=== PATIENT | female | born 1980 | race Two or more races ===

== ENCOUNTER 2016-10-06 17:51 | Emergency (ER) | payer OTHER ==
[2016-10-06 17:55] VITALS: BP 114/76; PULSE 72; TEMP 97.9; BMI 25.7
[2016-10-06] MEDS ORDERED: TETRACAINE 0.5% HCL 0.6ML DROPPER.BOTTLE OS ONE (18:23)
[2016-10-06] MEDS ORDERED: TETRACAINE 0.5% OPHTH SOLN 2 ML BOTTLE ONE (18:27)
--- NOTE | 2016-10-06 18:27 | PDOC ---
History of Present Illness - General Chief Complaint: Eye Problem Stated Complaint: COLD SYMPTOMS Time Seen by Provider: 10/06/16 18:03 History Source: Patient Exam Limitations: No Limitations - History of Present Illness Initial Comments: 10/06/16 18:22 35 yr female with itchy eyes started yesterday left eye more than right. Pt also with sneezing, nasal congestion . no fever. Past History - Past Medical History Allergies/Adverse Reactions: Allergies Allergy/AdvReac Type Severity Reaction Status Date / Time ondansetron HCl [From Zofran] Allergy Unknown Verified 10/06/16 17:53 ranitidine HCl [From Zantac] Allergy Unknown Verified 10/06/16 17:53 fluconazole [From Diflucan] Allergy Verified 10/06/16 17:53 Home Medications: Ambulatory Orders Ketotifen Fumarate [Itchy Eye] 1 drop OU BID #1 bottle 10/06/16 Moxifloxacin HCl [Vigamox 0.5% Eye Drops -] 1 drop OS QID #1 bottle 10/06/16 Asthma: No Cancer: No Cardiac Disorders: No Diabetes: No GI Disorders: Yes (HEARTBURN) HTN: No Seizures: No Thyroid Disease: No Other medical history: DENIES. - Surgical History Abdominal Surgery: Yes (LIPOSUCTION.) - Psycho/Social/Smoking Cessation Hx Anxiety: No Suicidal Ideation: No Smoking Status: No Smoking History: Current every day smoker Have you smoked in the past 12 months: Yes Number of Cigarettes Smoked Daily: 10 Information on smoking cessation initiated: No Hx Alcohol Use: No Drug/Substance Use Hx: No Substance Use Type: None Hx Substance Use Treatment: No *Physical Exam - Vital Signs Last Vital Signs Temp Pulse Resp BP Pulse Ox 97.9 F 72 18 114/76 99 10/06/16 17:53 10/06/16 17:53 10/06/16 17:53 10/06/16 17:53 10/06/16 17:53 - Physical Exam General Appearance: Yes: Nourished, Appropriately Dressed HEENT: positive: EOMI, SHAVON, Normal ENT Inspection, TMs Normal, Pharynx Normal, Other (bilateral conjunctiva eryhtmea, tearing left more than right, left with yellowish drainage ) Neck: negative: Tender Respiratory/Chest: positive: Lungs Clear, Normal Breath Sounds Cardiovascular: positive: Regular Rhythm, Regular Rate Gastrointestinal/Abdominal: positive: Normal Bowel Sounds, Soft Musculoskeletal: positive: Normal Inspection Extremity: positive: Normal Capillary Refill, Normal Inspection, Normal Range of Motion Integumentary: positive: Normal Color, Dry, Warm Neurologic: positive: Fully Oriented, Alert, Normal Mood/Affect, Normal Response , Motor Strength 5/5 Medical Decision Making - Medical Decision Making 10/06/16 20:00 cc: itchy eyes, tearing eyes nasal congestion pt concerned about 7 week baby at home catching pink eye afebrile non toxic not most likely allergic, will treat with vigamox drops for left eye conjunctivitis and antihistamine drops for both eyes mom has claritin at home for systemic allergies strict handwashing and cleaning with bleach common surfaces discussed pt agrees with plan of care *DC/Admit/Observation/Transfer Diagnosis at time of Disposition: Allergic conjunctivitis and rhinitis Qualifiers: Laterality: bilateral Qualified Code(s): H10.13 - Acute atopic conjunctivitis, bilateral - Prescriptions Prescriptions: Ketotifen Fumarate [Itchy Eye] 1 drop OU BID #1 bottle Moxifloxacin HCl [Vigamox 0.5% Eye Drops -] 1 drop OS QID #1 bottle - Referrals Referrals: Cole Fisher MD [Primary Care Provider] - Blayne Aguilar MD [Staff Physician] - - Patient Instructions Additional Instructions: get over the counter non drowsy Claritin or Zyrtec and take daily as directed wash hands frequently clean door handles, faucet handles common areas with bleach wipes. use the eye drops as directed follow with ENT and allergy for follow up next week if not improving
== END 2016-10-06 18:35 | disposition home or self-care (01) ==
LOC: JERFT 17:51 → SUPCPDRO 17:51 → JERFT 18:35
DX: H10.13 Acute atopic conjunctivitis, bilateral (principal); J30.1 Allergic rhinitis due to pollen
CPT/HCPCS: 99281-25

== ENCOUNTER 2017-03-24 19:30 | Emergency (ER) | payer OTHER ==
[2017-03-24 19:39] VITALS: BP 127/82; PULSE 78; TEMP 98; BMI 28.1
--- NOTE | 2017-03-24 20:36 | PDOC ---
History of Present Illness - General Chief Complaint: Rash Stated Complaint: ALLERGIC REACTION Time Seen by Provider: 03/24/17 20:32 History Source: Patient Exam Limitations: No Limitations - History of Present Illness Initial Comments: Patient is a 36 year old female with history of allergies presenting with diffuse pruritic rash for one day. Patient states the rash 03/24/17 20:36 03/24/17 20:51 Past History - Past Medical History Allergies/Adverse Reactions: Allergies Allergy/AdvReac Type Severity Reaction Status Date / Time ondansetron HCl [From Zofran] Allergy Unknown Verified 03/24/17 19:35 fluconazole [From Diflucan] Allergy Verified 03/24/17 19:35 Home Medications: Ambulatory Orders Diphenhydramine HCl [Benadryl -] 25 mg PO Q6H PRN #28 capsule 03/24/17 Ibuprofen [Motrin -] 600 mg PO QID PRN #28 tablet 03/24/17 Asthma: No Cancer: No Cardiac Disorders: No Diabetes: No GI Disorders: Yes (HEARTBURN) HTN: No Seizures: No Thyroid Disease: No - Surgical History Abdominal Surgery: Yes (LIPOSUCTION.) - Immunization History Immunization Up to Date: Yes - Suicide/Smoking/Psychosocial Hx Smoking Status: No Smoking History: Current every day smoker Have you smoked in the past 12 months: Yes Number of Cigarettes Smoked Daily: 20 Information on smoking cessation initiated: No Hx Alcohol Use: No Drug/Substance Use Hx: No Substance Use Type: None Hx Substance Use Treatment: No Review of Systems - Review of Systems Able to Perform ROS?: Yes Comments:: GEN: Denies fever, chills, recent illness HEENTM: Denies sore throat, Changes in vision, Changes in hearing Respiratory: Denies Cough, Shortness of Breath Cardiac: Denies Chest Pain, Syncope ABD/GI: Denies Abdominal Pain, Nausea, Vomiting, Diarrhea, Constipation : Denies Dysuria, Burning on urination Musculoskeletal: Endorses joint pain; Denies muscle pain Integumentary: Endorses a diffuse rash to chest, back, abdomen, arms, legs; Denies diaphoresis, bruises Neurological: Denies SAVAGE, dizziness, weakness All Other Systems Reviewed and Negative Is the patient limited Samoan proficient: No *Physical Exam - Vital Signs Last Vital Signs Temp Pulse Resp BP Pulse Ox 98.0 F 78 18 127/82 100 03/24/17 19:33 03/24/17 19:33 03/24/17 19:33 03/24/17 19:33 03/24/17 19:33 Medical Decision Making - Medical Decision Making 36 year old female with history of RA and allergies presenting with a diffuse rash and joint pain ddx Benedryl and Motirn Derm referral monitor and reassess 03/24/17 20:55 *DC/Admit/Observation/Transfer Diagnosis at time of Disposition: Allergic reaction Qualifiers: Encounter type: initial encounter Qualified Code(s): T78.40XA - Allergy, unspecified, initial encounter - Discharge Dispostion Disposition: HOME Condition at time of disposition: Improved Admit: No - Prescriptions Prescriptions: Diphenhydramine HCl [Benadryl -] 25 mg PO Q6H PRN #28 capsule PRN Reason: For Itching Ibuprofen [Motrin -] 600 mg PO QID PRN #28 tablet PRN Reason: Pain - Referrals Referrals: Cole Fisher MD [Primary Care Provider] - - Patient Instructions Printed Discharge Instructions: How to Reduce Environmental Allergens Additional Instructions: Follow up with Dr. Fisher in the next two weeks for your joint pain. Make an appointment with one of the dermatologists to evaluate the cause of your allergic rashes Take all medication as directed. Avoid driving when taking diphehydramine because it may cause fatigue. Take 1 Motrin tablet every 6 hours as needed for pain Take 1 Benadryl tablet every 4 hours as needed for itchiness. return to the emergency room if your start to develop problems breathing, your rash continues to get worse or you develop any new or concerning symptoms. Print Language: BAHAMIAN
[2017-03-24] MEDS ORDERED: diphenhydrAMINE HCL 50 MG CAPSULE PO ONE (20:49)
[2017-03-24] MEDS ORDERED: diphenhydrAMINE HCL 25 MG CAPSULE (FP) PO ONE (20:53)
[2017-03-24] MEDS ORDERED: IBUPROFEN 400 MG TABLET (FP) PO ONE ×2 (20:54→20:56)
--- NOTE | 2017-03-24 21:18 | PDOC ---
Attending Attestation - Resident Resident Name: Virgil Webber - ED Attending Attestation I have performed the following: I have examined & evaluated the patient, The case was reviewed & discussed with the resident, I agree w/resident's findings & plan, Exceptions are as noted - HPI HPI: 03/24/17 21:15 36 yo female with history of allergies developed hives tonight to an unknown substance. She denies any shortness of breath,difficulty breathing. Also she states that for the psat 2 years she has had intermittent joint pain. 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
== END 2017-03-24 21:38 | disposition home or self-care (01) ==
LOC: JER 19:30 → JERFT 19:30 → JER 21:38
DX: T78.40XA Allergy, unspecified, initial encounter (principal)
CPT/HCPCS: 99282-25

== ENCOUNTER 2019-12-16 21:21 | Emergency (ER) | payer OTHER ==
[2019-12-16 21:34] VITALS: BP 123/87; PULSE 72; TEMP 98; BMI 27.1
--- NOTE | 2019-12-16 21:35 | PDOC ---
Rapid Medical Evaluation Chief Complaint: Head/Neck problem Time Seen by Provider: 12/16/19 21:34 Medical Evaluation: Allergies Allergy/AdvReac Type Severity Reaction Status Date / Time ondansetron HCl [From Zofran] Allergy Unknown Verified 12/16/19 21:28 fluconazole [From Diflucan] Allergy Verified 12/16/19 21:28 Vital Signs Temp Pulse Resp BP Pulse Ox 98 F 72 18 123/87 98 12/16/19 21:24 12/16/19 21:24 12/16/19 21:24 12/16/19 21:24 12/16/19 21:24 12/16/19 21:34 I have performed a brief in-person evaluation of this patient. CC: Right sided weakness x2 weeks PE: [place] negative. Orders: labs, urine, ekg Patient to proceed to ED for Further evaluation. Discharge Disposition - Diagnosis Weakness - Discharge Dispostion Last Admission D/C Date: 06/20/12 - Referrals Referrals: Cole Fisher MD [Primary Care Provider] - - Patient Instructions - Post Discharge Activity
[2019-12-16] MEDS ORDERED: ACETAMINOPHEN 500 MG TABLET (FP) PO ONE (21:50)
[2019-12-16] MEDS ORDERED: METOCLOPRAMIDE HCL INJECTION 10 MG/2 ML VIAL IVPUSH ONE (21:50)
[2019-12-16] MEDS ORDERED: LACTATED RINGERS SOLUTION 1,000 ML/1,000 ML INFUS.BAG IV STA (21:50)
[2019-12-16] MEDS ORDERED: ACETAMINOPHEN 325 MG TABLET (FP) ONE (22:17)
[2019-12-16] MEDS ORDERED: METOCLOPRAMIDE HCL INJECTION 10 MG/2 ML VIAL ONE (22:17)
[2019-12-16 22:23] LABS: BASO % 0.6 % (0-2.0); EOS % 2.5 % (0-4.5); HEMATOCRIT 38.8 % (32.4-45.2); LYMPH % 35.2 % (8-40); MCH 27.6 pg (25.7-33.7); MCHC 33.4 g/dl (32.0-36.0); MEAN CELL VOLUME 82.6 fl (80-96); MEAN PLT VOLUME 7.5 fl (7.5-11.1); MONO % 6.4 % (3.8-10.2); NEUT % 55.3 % (42.8-82.8); PLATELET COUNT 262 K/MM3 (134-434); RDW 13.3 % (11.6-15.6)
[2019-12-16 22:34] LABS: INR 0.99 (0.83-1.09); PROTHROMBIN TIME (PATIENT) 11.7 SEC (9.7-13.0)
[2019-12-16 22:36] LABS: ACTIVATED PTT 29.3 SECONDS (25.2-36.5)
[2019-12-16 22:45] LABS: PH,URINE 6.5 (5.0-8.0); URINE APPEARANCE CLEAR; URINE BILIRUBIN NEGATIVE (NEGATIVE); URINE COLOR YELLOW; URINE GLUCOSE (UA) NEGATIVE (NEGATIVE); URINE KETONE NEGATIVE (NEGATIVE); URINE LEUK ESTERASE NEGATIVE (NEGATIVE); URINE NITRITE NEGATIVE (NEGATIVE); URINE PROTEIN NEGATIVE (NEGATIVE)
[2019-12-16 23:02] LABS: ALBUMIN 3.6 g/dl (3.4-5.0); ALK PHOS 63 U/L (45-117); ANION GAP 9 MMOL/L (8-16); BILIRUBIN,TOTAL 0.3 mg/dL (0.2-1); BLOOD UREA NITROGEN 13.5 mg/dL (7-18); CALCIUM 8.9 mg/dL (8.5-10.1); CHLORIDE 107 mmol/L (98-107); CO2 25 mmol/L (21-32); CREATININE 0.8 mg/dL (0.55-1.3); GLUCOSE,RANDOM 81 mg/dL (74-106); POTASSIUM 3.7 mmol/L (3.5-5.1); SGOT/AST 14 U/L (15-37); SGPT/ALT 20 U/L (13-61); SODIUM 141 mmol/L (136-145); TOT PROT 7.6 g/dl (6.4-8.2)
--- NOTE | 2019-12-17 02:18 | PDOC ---
*Physical Exam - Vital Signs Last Vital Signs Temp Pulse Resp BP Pulse Ox 98 F 72 18 123/87 98 12/16/19 21:24 12/16/19 21:24 12/16/19 21:24 12/16/19 21:24 12/16/19 21:24 ED Treatment Course - LABORATORY CBC & Chemistry Diagram: 12/16/19 22:05 12/16/19 22:05 - ADDITIONAL ORDERS Additional order review: Laboratory Results 12/16/19 12/16/19 12/16/19 22:35 22:35 22:30 PT with INR INR PTT (Actin FS) Sodium Potassium Chloride Carbon Dioxide Anion Gap BUN Creatinine Est GFR (CKD-EPI)AfAm Est GFR (CKD-EPI)NonAf Random Glucose Calcium Total Bilirubin AST ALT Alkaline Phosphatase Creatine Kinase Troponin I Total Protein Albumin Urine Color Yellow Urine Appearance Clear Urine pH 6.5 D Ur Specific Vance 1.023 Urine Protein Negative Urine Glucose (UA) Negative Urine Ketones Negative Urine Blood Negative Urine Nitrite Negative Urine Bilirubin Negative Urine Urobilinogen 1.0 Ur Leukocyte Esterase Negative Urine HCG, Qual Negative Blood Type A POSITIVE Antibody Screen Negative 12/16/19 12/16/19 22:05 22:05 PT with INR 11.70 INR 0.99 PTT (Actin FS) 29.3 Sodium 141 Potassium 3.7 Chloride 107 Carbon Dioxide 25 Anion Gap 9 BUN 13.5 Creatinine 0.8 Est GFR (CKD-EPI)AfAm 106.88 Est GFR (CKD-EPI)NonAf 92.22 Random Glucose 81 Calcium 8.9 Total Bilirubin 0.3 AST 14 L ALT 20 Alkaline Phosphatase 63 Creatine Kinase 89 Troponin I < 0.02 Total Protein 7.6 Albumin 3.6 Urine Color Urine Appearance Urine pH Ur Specific Vance Urine Protein Urine Glucose (UA) Urine Ketones Urine Blood Urine Nitrite Urine Bilirubin Urine Urobilinogen Ur Leukocyte Esterase Urine HCG, Qual Blood Type Antibody Screen 12/16/19 22:05 RBC 4.70 MCV 82.6 MCHC 33.4 RDW 13.3 MPV 7.5 Neutrophils % 55.3 D Lymphocytes % 35.2 D Monocytes % 6.4 D Eosinophils % 2.5 D Basophils % 0.6 - Medications Given in the ED: ED Medications Discontinued Medications Generic Name Dose Route Start Last Admin Trade Name Freq PRN Reason Stop Dose Admin Acetaminophen 975 mg 12/16/19 21:50 12/16/19 22:28 Tylenol - PO 12/16/19 21:51 975 mg ONCE ONE Administration Lactated Ringer's 1,000 ml in 1,000 mls @ 1,000 mls/hr 12/16/19 21:50 0 12/16/19 22:28 Lactated Ringers Solution IV 12/16/19 22:49 1,000 mls/hr ONCE STA Administration Metoclopramide HCl 10 mg 12/16/19 21:50 12/16/19 22:28 Reglan Injection - IVPUSH 12/16/19 21:51 10 mg ONCE ONE Administration Medical Decision Making - Medical Decision Making 12/17/19 02:[address] results and need for MRI. Patient does not want to stay for MRI overnight, would like to go home to take care of her children. Patient of sound mind and VSS, able to make this decision. Neuro sx resolved. CT no acute pathology. AMA form signed. Neuro f/u provided. Discharge - Discharge Information Problems reviewed: Yes Clinical Impression/Diagnosis: Weakness Condition: Stable Disposition: AGAINST MEDICAL ADVICE - Admission No - Follow up/Referral Referrals: Cole Fisher MD [Primary Care Provider] - Gulshan Aldridge MD [Staff Physician] - Cosme Walter MD [Staff Physician] - - Patient Discharge Instructions Additional Instructions: Today you were evaluated for arm weakness and a headache. Your CT scan does not show any stroke. Your labs are all normal. We recommended that you stay in the hospital for a neurologist evaluation, but you would rather go home and follow- up outpatient, and you agreed to leave against medical advice. At home, please see a neurologist that has been referred to you. If you experience any worsening headache, weakness, fever, or any other new or concerning symptoms, please return to the emergency room. - Post Discharge Activity
--- NOTE | 2019-12-17 11:50 | EKG ---
Test Reason : Blood Pressure : / mmHG Vent. Rate : 067 BPM Atrial Rate : 067 BPM P-R Int : 172 ms QRS Dur : 086 ms QT Int : 396 ms P-R-T Axes : 052 053 025 degrees QTc Int : 418 ms SINUS RHYTHM WITH MARKED SINUS ARRHYTHMIA OTHERWISE NORMAL ECG WHEN COMPARED WITH ECG OF 05-APR-2005 00:06, VENT. RATE HAS DECREASED BY 66 BPM NONSPECIFIC T WAVE ABNORMALITY NOW EVIDENT IN ANTERIOR LEADS Confirmed by AMERICA HUERTAS MD ([id number]) on 12/17/2019 11:50:32 AM Referred By: Confirmed By:AMERICA HUERTAS MD
--- NOTE | 2020-01-13 12:20 | PDOC ---
Documentation entered by Cynthia Hartley SCRIBE, acting as scribe for Marycarmen Weber MD. Marycarmen Weber MD: This documentation has been prepared by the Odilia snowden Brenda, SCRIBE, under my direction and personally reviewed by me in its entirety. I confirm that the documentation accurately reflects all work, treatment, procedures, and medical decision making performed by me. History of Present Illness - General Chief Complaint: Head/Neck problem Stated Complaint: RT SIDE BODY NUMBNESS Time Seen by Provider: 12/16/19 21:34 History Source: Patient Exam Limitations: No Limitations - History of Present Illness Initial Comments: 12/16/19 22:38 39yoF c/o intermittnet headaches and R sided neuro complaints x 1-2 weeks. States she is having frequent migranes, intemittent paresthesias to R arm/hand. A few days ago noted a "spasming" or "shaking" of R hand during which time she was unable to close her hand into a fist. Episode lasted a few minutes and then resolved. She is concerned today because her symptoms are more persistent. She states that she had a migraine headache all morning which finally resolved around 2pm after drinking some coffee. Notes hat around 3pm, which she was in the shower, pt developed R hemibody paresthesias that have persisted to ED presentation. Also complains that her R cheek and R neck feel "tight" in ED. no n/v/d, no neck pain/stiffness, no fevers, no cp/sob, no weakness, no vision changes. + Fhx of stroke at young age. Past History - Medical History Allergies/Adverse Reactions: Allergies Allergy/AdvReac Type Severity Reaction Status Date / Time ondansetron HCl [From Zofran] Allergy Unknown Verified 12/16/19 21:28 fluconazole [From Diflucan] Allergy Verified 12/16/19 21:28 Home Medications: Ambulatory Orders Diphenhydramine HCl [Benadryl -] 25 mg PO Q6H PRN #28 capsule 03/24/17 Ibuprofen [Motrin -] 600 mg PO QID PRN #28 tablet 03/24/17 Asthma: No Cancer: No Cardiac Disorders: No COPD: No Diabetes: No GI Disorders: Yes (HEARTBURN) HTN: No Seizures: No Thyroid Disease: No - Surgical History Abdominal Surgery: Yes (LIPOSUCTION.) - Immunization History Immunization Up to Date: Yes - Psycho-Social/Smoking History Smoking Status: No Smoking History: Never smoked Have you smoked in the past 12 months: Yes Number of Cigarettes Smoked Daily: 20 - Substance Abuse Hx (Audit-C & DAST Scrn) How often the patient has a drink containing alcohol: Never Score: In Men: 4 or > Positive; In Women: 3 or > Positive: 0 Screen Result (Pos requires Nsg. Audit-10AR): Negative Review of Systems - Review of Systems Able to Perform ROS?: Yes Comments:: 12/16/19 22:43 as pe rHPI *Physical Exam - Vital Signs Last Vital Signs Temp Pulse Resp BP Pulse Ox 98 F 72 18 123/87 98 12/16/19 21:24 12/16/19 21:24 12/16/19 21:24 12/16/19 21:24 12/16/19 21:24 - Physical Exam 12/16/19 22:43 NAD, well appearing face symmetric RRR CTABL soft NTND moving all 4, no pronaor drift, c/o tingling sensation to R arm/leg. 5/5 strength intact gait, balance, speech WNL A&O x 3 ED Treatment Course - LABORATORY CBC & Chemistry Diagram: 12/16/19 22:05 12/16/19 22:05 Medical Decision Making - Medical Decision Making 12/16/19 22:44 39yo f w/ 2 weeks of intermittnet neuo symptoms and highly frequent migraine headaches. Symptoms concerning for complex migraines, possible MS, pt may have had a partial seizure a few days ago when her hand was shaking. - labs - HCT - migraine medicaitons - reeval. 12/16/19 22:51 After reglan/tylenol, pt's body pareshesias have resolved and she is endorsing only a small amoun of tingling to R face. Discharge - Discharge Information Problems reviewed: Yes Clinical Impression/Diagnosis: Weakness Condition: Stable Disposition: AGAINST MEDICAL ADVICE - Follow up/Referral Referrals: Gulshan Aldridge MD [Staff Physician] - Cole Fisher MD [Primary Care Provider] - Cosme Walter MD [Staff Physician] - - Patient Discharge Instructions Additional Instructions: Today you were evaluated for arm weakness and a headache. Your CT scan does not show any stroke. Your labs are all normal. We recommended that you stay in the hospital for a neurologist evaluation, but you would rather go home and follow- up outpatient, and you agreed to leave against medical advice. At home, please see a neurologist that has been referred to you. If you experience any worsening headache, weakness, fever, or any other new or concerning symptoms, please return to the emergency room. - Post Discharge Activity
== END 2019-12-17 02:52 | disposition left against medical advice (07) ==
LOC: JER 21:21
PROC: 3E0337Z Introduction of Electrolytic and Water Balance Substance into Peripheral Vein, Percutaneous Approach (ICD-10-PCS; principal; 2019-12-16)
PROC: 3E033GC Introduction of Other Therapeutic Substance into Peripheral Vein, Percutaneous Approach (ICD-10-PCS; principal; 2019-12-16)
DX: R53.1 Weakness (principal)
CPT/HCPCS: 36415; 70450-TC; 71045-TC-FY; 80053; 81003; 82550; 84484; 84703; 85025; 85610; 85730; 86850; 86900; 86901; 93005; 93010; 99285-25

== ENCOUNTER 2022-06-07 13:28 | Emergency (ER) | payer OTHER ==
[2022-06-07 13:50] VITALS: BP 125/80; PULSE 110; RESP 19; TEMP 97.8; BMI 25.0
[2022-06-07] MEDS: IBUPROFEN 600 MG TABLET (FP) PO ONE ×2 (15:09→15:43)
[2022-06-07] MEDS ORDERED: ACETAMINOPHEN 500 MG TABLET (FP) PO ONE (15:10)
[2022-06-07] MEDS ORDERED: ACETAMINOPHEN 500 MG TABLET (FP) ONE (15:11)
== END 2022-06-07 19:10 | disposition home or self-care (01) ==
LOC: JERFT 13:28
PROC: 0HQ0XZZ Repair Scalp Skin, External Approach (ICD-10-PCS; principal; 2022-06-07)
DX: S01.01XA Laceration without foreign body of scalp, initial encounter (principal); Y00.XXXA Assault by blunt object, initial encounter
CPT/HCPCS: 70450-TC; 72125-TC; 72128-TC; 72131-TC; 73070-TC-LT-FY; 73070-TC-RT-FY; 73090-TC-LT-FY; 73090-TC-RT-FY; 84703; 99285-25

== ENCOUNTER 2022-06-18 08:00 | Emergency (ER) | payer OTHER ==
[2022-06-18 08:36] VITALS: BP 99/65; PULSE 70; RESP 20; TEMP 99; BMI 27.4
[2022-06-18] MEDS ORDERED: LIDOCAINE 2.5%/PRILOCAINE 2.5% (5 Gram/TUBE) TP ONE (09:28)
[2022-06-18] MEDS ORDERED: LIDOCAINE 2.5%/PRILOCAINE 2.5% 30 GRAM TUBE TP ONE (09:28)
== END 2022-06-18 10:06 | disposition home or self-care (01) ==
LOC: JER 08:00 → JERFT 08:00
DX: S01.01XA Laceration without foreign body of scalp, initial encounter (principal); Y99.9 Unspecified external cause status; Z48.02 Encounter for removal of sutures
CPT/HCPCS: 99281-25